=== PATIENT | male | born 1955 | race African-American/Black ===

== ENCOUNTER 2019-10-10 15:55 | Emergency (ER) | payer MEDICAID, OTHER ==
[~2019-10-10] VITALS: Ht 180.3 cm; Wt 108.0 kg
[~2019-10-10 15:55] MED LIST: ALBUTEROL SULF8.5 GM INH; AZITHROMYCIN250 MG ORAL; IBUPROFEN600 MG ORAL; MEDROL DOSEPAK4 MG ORAL; PROMETHAZINE-D118 ML ORAL
[2019-10-10 16:02] VITALS: BP 155/84
[2019-10-10] MEDS ORDERED: GLUCOPHAGE500 MG ORAL (16:08)
[2019-10-10] MEDS ORDERED: LOTENSIN20 MG ORAL (16:08)
--- NOTE | 2019-10-10 16:54 | Emergency Room Report ---
History of Present Illness General Chief Complaint: General Complaint Source: Patient Present Illness HPI 63 year old male presents with high blood pressure. He was at his chiropractor appointment and was told his blood pressure was 173/103 and told to get seen by a medical professional. He reports his BP is always high at that office. He denies any chest pain, shortness of breath, nausea/vomiting, dizziness, headache , any symptoms at all. He did not take his blood pressure medication today. He also has diabetes and takes medication for that. Patient had an UT about 10 years ago but no incidents since. Allergies: Coded Allergies: No Known Allergies (Verified Allergy, Unknown, 08/13/08) Patient History Past Medical History: see triage record Reviewed Nursing Documentation: PMH: Agreed; PSxH: Agreed Nursing Documentation-PMH Past Medical History: No History, Except For Hx Cardiac Problems: No - Right leg prosthesis Hx Hypertension: Yes Hx Pacemaker: No Hx Asthma: No Hx COPD: No Hx Diabetes: Yes Hx Cancer: No Hx Gastrointestinal Problems: No Hx Dialysis: No Hx Neurological Problems: No Hx Cerebrovascular Accident: No Hx Seizures: No Review of Systems All Other Systems: negative except mentioned in HPI Physical Exam Vital Signs Date Time Temp Pulse Resp B/P (MAP) Pulse Ox O2 Delivery O2 Flow Rate FiO2 10/10/19 16:02 98.2 18 155/84 95 Room Air 10/10/19 16:02 98 Sp02 EP Interpretation: reviewed, normal General Appearance: no apparent distress, alert, GCS 15, non-toxic Head: normocephalic, atraumatic ENT: hearing grossly normal, normal voice Neck: full range of motion, supple/symm/no masses Respiratory: lungs clear, normal breath sounds, speaking full sentences Cardiovascular #1: regular rate, rhythm, no edema Cardiovascular #2: 2+ radial (R), 2+ radial (L) Gastrointestinal: normal bowel sounds, non tender, soft, non-distended, no guarding, no rebound Genitourinary: no CVA tenderness Musculoskeletal: back normal, normal range of motion, gait/station normal, non- tender Neurologic: alert, motor strength/tone normal, oriented x3, sensory intact, responsive, speech normal Psychiatric: judgement/insight normal, mood/affect normal Skin: no rash, warm/dry Lymphatic: no adenopathy Medical Decision Making PA Attestation Dr. Lino is my supervising physician whom patient management and care has been discussed with. Diagnostic Impression: Primary Impression: HTN (hypertension) Qualified Codes: I10 - Essential (primary) hypertension ER Course Pt. presents to the ED c/o hypertension. Currently asymptomatic. No chest pain, SOB, headache, dizziness, N/V. Ddx considered but are not limited to hypertensive urgency, hypertensive emergency, end organ failure. Vital signs: are WNL, mildly elevated BP at 155/84, pt. is afebrile H&PE are most consistent with chronic hypertension. ORDERS: CBC, BMP WNL. Troponin negative. EKG normal aside from mild tachycardia. ED INTERVENTIONS: None required at this time. DISCHARGE: At this time pt. is stable for d/c to home. Will provide printed patient care instructions, and any necessary prescriptions. Care plan and follow up instructions have been discussed with the patient prior to discharge. Laboratory Tests Test 10/10/19 16:40 White Blood Count 7.4 K/UL (4.8-10.8) Red Blood Count 5.51 M/UL (4.70-6.10) Hemoglobin 15.1 G/DL (14.2-18.0) Hematocrit 44.2 % (42.0-52.0) Mean Corpuscular Volume 80 FL (80-99) Mean Corpuscular Hemoglobin 27.5 PG (27.0-31.0) Mean Corpuscular Hemoglobin Concent 34.2 G/DL (32.0-36.0) Red Cell Distribution Width 10.4 % (11.6-14.8) L Platelet Count 230 K/UL (150-450) Mean Platelet Volume 6.7 FL (6.5-10.1) Neutrophils (%) (Auto) 49.5 % (45.0-75.0) Lymphocytes (%) (Auto) 37.2 % (20.0-45.0) Monocytes (%) (Auto) 8.1 % (1.0-10.0) Eosinophils (%) (Auto) 3.3 % (0.0-3.0) H Basophils (%) (Auto) 1.9 % (0.0-2.0) Sodium Level 135 MMOL/L (136-145) L Potassium Level 4.0 MMOL/L (3.5-5.1) Chloride Level 101 MMOL/L (98-107) Carbon Dioxide Level 26 MMOL/L (21-32) Anion Gap 8 mmol/L (5-15) Blood Urea Nitrogen 12 mg/dL (7-18) Creatinine 1.2 MG/DL (0.55-1.30) Estimate Glomerular Filtration Rate > 60 mL/min (>60) Glucose Level 261 MG/DL (74-106) H Calcium Level 9.3 MG/DL (8.5-10.1) Troponin I 0.015 ng/mL (0.000-0.056) EKG Diagnostic Results EKG Time: 16:28 EP Interpretation: Dr. Lino Rate: tachycardiac Rhythm: NSR ST Segments: no acute changes PA Scribe Text This EKG was scribed by Gi Hair PA-C. Last Vital Signs Date Time Temp Pulse Resp B/P (MAP) Pulse Ox O2 Delivery O2 Flow Rate FiO2 10/10/19 16:14 98 18 Room Air 10/10/19 16:02 98.2 155/84 (107) 95 Disposition: HOME, SELF-CARE Condition: Stable Gi Hair PAl Oct 10, 2019 16:54
[2019-10-10 17:04] LABS: ANION GAP 8 mmol/L (5-15); BLOOD UREA NITROGEN 12 mg/dL (7-18); CALCIUM 9.3 MG/DL (8.5-10.1); CARBON DIOXIDE 26 MMOL/L (21-32); CHLORIDE 101 MMOL/L (98-107); CREATININE 1.2 MG/DL (0.55-1.30); SODIUM 135 MMOL/L (136-145)
[2019-10-10 17:09] LABS: BASOPHILS % (AUTO) 1.9 % (0.0-2.0); EOSINOPHILS % (AUTO) 3.3 % (0.0-3.0); HEMATOCRIT 44.2 % (42.0-52.0); HEMOGLOBIN 15.1 G/DL (14.2-18.0); LYMPHOCYTES % (AUTO) 37.2 % (20.0-45.0); MEAN CORPUSCULAR VOLUME 80 FL (80-99); MONOCYTES % (AUTO) 8.1 % (1.0-10.0); NEUTROPHILS % (AUTO) 49.5 % (45.0-75.0); PLATELET COUNT 230 K/UL (150-450); RED BLOOD COUNT 5.51 M/UL (4.70-6.10); RED CELL DISTRIBUTION WIDTH 10.4 % (11.6-14.8); WHITE BLOOD COUNT 7.4 K/UL (4.8-10.8)
[2019-10-10 17:28] VITALS: BP 148/76
== END 2019-10-10 17:40 | disposition home or self-care (01) ==
LOC: EMR 17:36
DX: I10 Essential (primary) hypertension (principal); I25.2 Old myocardial infarction; E11.9 Type 2 diabetes mellitus without complications; R00.0 Tachycardia, unspecified
CPT/HCPCS: 36415; 80048; 84484; 85025; 93005; Z7502; 99283